=== PATIENT | male | born 1955 | race African-American/Black ===

== ENCOUNTER → 2021-09-11 | Day surgery (SDC) | payer MEDICARE ==
[~2021-09-11] VITALS: Ht 195.6 cm; Wt 95.3 kg
[~2021-09-11] MED LIST: ATORVASTATIN CA80 MG PO; BENICAR *OUT OF20 MG PO; METFORMIN HCL500 MG PO; NITROQUIK SL0.4 MG SL; OLMESARTAN HCTZ PO; TOPROL XL 50 MG50 MG PO
== END | disposition home or self-care (01) ==
LOC: FAS 08-28 09:15
DX: Z12.11 Encounter for screening for malignant neoplasm of colon (principal); K29.50 Unspecified chronic gastritis without bleeding; B96.81 Helicobacter pylori [H. pylori] as the cause of diseases classified elsewhere; K21.9 Gastro-esophageal reflux disease without esophagitis; I10 Essential (primary) hypertension; R73.03 Prediabetes; Z79.84 Long term (current) use of oral hypoglycemic drugs; Z79.899 Other long term (current) drug therapy; Z88.1 Allergy status to other antibiotic agents; Z88.6 Allergy status to analgesic agent; Z88.8 Allergy status to other drugs, medicaments and biological substances; Z91.040 Latex allergy status; Z91.041 Radiographic dye allergy status
CPT/HCPCS: 43239; G0121; J2704; J7120